=== PATIENT | male | born 1930 | race Caucasian/White ===

== ENCOUNTER → 2016-06-16 | Outpatient (REF) | payer MEDICARE ==
[~2016-06-16] MED LIST: AC500T GT; AC500T PO; ASCO500C6 PO; ASP81CT PO; CA C1TAB70 PO; CARB1TAB5 PO; CIPR-273 PO; COMP1EAC MC; DABI75CA2; DICL2.5D11 OU; DIGO125T6 PO; FINA5TAB PO; FURO-124 PO; GBPN300C PO; GLUC-132 PO; HYDR-3754 PO; LECI518C OP; LISI-596 PO; METO-272 PO; METO50TA PO; OFLO5DRO7 OT; OMEG1CAP58 PO; OMG1KC PO; OXYB5TAB9 PO; POLY17PO2 PO; POTA10CA2 PO; QTP25T PO; SIMV40TA PO; SIMV80TA3 PO; SOLI5TAB2; TAMS-8 PO; WARF6TAB3 PO; WRF1T PO; [UNRECOGNIZED DRUG - CODE] IV; [UNRECOGNIZED DRUG - CODE] PO; [UNRECOGNIZED DRUG - CODE] PO
== END ==
LOC: LAB 14:57
PROVIDERS: ATTEND Family Medicine
DX: Z51.81 Encounter for therapeutic drug level monitoring (principal); Z79.01 Long term (current) use of anticoagulants; R94.6 Abnormal results of thyroid function studies
CPT/HCPCS: 85610

== ENCOUNTER → 2016-06-22 | Outpatient (REF) | payer MEDICARE | LOC: LAB 17:08 | PROVIDERS: ATTEND Family Medicine | DX: Z51.81 Encounter for therapeutic drug level monitoring (principal); Z79.01 Long term (current) use of anticoagulants | CPT/HCPCS: 85610 ==

== ENCOUNTER → 2016-07-17 | Outpatient (REF) | payer MEDICARE | LOC: LAB 17:18 | PROVIDERS: ATTEND Family Medicine | DX: Z51.81 Encounter for therapeutic drug level monitoring (principal); Z79.01 Long term (current) use of anticoagulants | CPT/HCPCS: 85610 ==

== ENCOUNTER → 2016-07-29 | Outpatient (REF) | payer MEDICARE | LOC: LAB 07:37 | PROVIDERS: ATTEND Family Medicine | DX: Z51.81 Encounter for therapeutic drug level monitoring (principal); Z79.01 Long term (current) use of anticoagulants | CPT/HCPCS: 85610 ==

== ENCOUNTER → 2016-09-03 | Outpatient (REF) | payer MEDICARE | LOC: LAB 17:26 | PROVIDERS: ATTEND Family Medicine | DX: Z51.81 Encounter for therapeutic drug level monitoring (principal); Z79.01 Long term (current) use of anticoagulants | CPT/HCPCS: 85610 ==

== ENCOUNTER → 2016-09-21 | Outpatient (REF) | payer MEDICARE | LOC: LAB 11:31 | PROVIDERS: ATTEND Family Medicine | DX: Z51.81 Encounter for therapeutic drug level monitoring (principal); Z79.01 Long term (current) use of anticoagulants | CPT/HCPCS: 85610 ==

== ENCOUNTER → 2016-09-30 | Outpatient (REF) | payer MEDICARE | LOC: LAB 13:21 | PROVIDERS: ATTEND Family Medicine | DX: Z51.81 Encounter for therapeutic drug level monitoring (principal); Z79.01 Long term (current) use of anticoagulants | CPT/HCPCS: 85610 ==

== ENCOUNTER → 2016-10-19 | Outpatient (REF) | payer MEDICARE | LOC: LAB 14:23 | PROVIDERS: ATTEND Family Medicine | DX: Z51.81 Encounter for therapeutic drug level monitoring (principal); Z79.01 Long term (current) use of anticoagulants | CPT/HCPCS: 85610 ==